=== PATIENT | female | born 1970 | race Caucasian/White ===

== ENCOUNTER → 2018-03-20 | Outpatient (CLI) | payer OTHER | LOC: M.RAD 13:52 → M.MRI 14:30 | DX: N60.01 Solitary cyst of right breast (principal); N62 Hypertrophy of breast; Z86.000 Personal history of in-situ neoplasm of breast ==

== ENCOUNTER → 2018-09-27 | Outpatient (CLI) | payer OTHER | LOC: M.RAD 14:49 | DX: N62 Hypertrophy of breast (principal) ==

== ENCOUNTER → 2019-03-30 | Outpatient (CLI) | payer OTHER | LOC: M.RAD 03-29 16:30 | DX: Z12.31 Encounter for screening mammogram for malignant neoplasm of breast (principal) ==

== ENCOUNTER → 2020-03-31 | Outpatient (CLI) | payer OTHER | LOC: M.RAD 16:11 | PROVIDERS: ATTEND Internal Medicine Hematology & Oncology | DX: Z12.31 Encounter for screening mammogram for malignant neoplasm of breast (principal) ==

== ENCOUNTER → 2021-02-12 | Outpatient (CLI) | payer OTHER | LOC: M.RAD 09:00 → M.ULTRA 09:30 | PROVIDERS: ATTEND Obstetrics & Gynecology | DX: N63.10 Unspecified lump in the right breast, unspecified quadrant (principal) ==